=== PATIENT | female | born 1970 | race Hispanic/Latino ===

== ENCOUNTER 2020-11-01 15:11 | Inpatient (IN) | payer OTHER ==
[~2020-11-01] VITALS: Ht 162.6 cm; Wt 102.5 kg
[2020-11-01 15:19] VITALS: BP 107/66
[2020-11-01 15:52] LABS: BASOPHILS % (AUTO) 0.2 % (0.0-5.0); EOSINOPHILS % (AUTO) 1.2 % (0.0-8.0); HEMATOCRIT 40.1 % (36-48); LYMPHOCYTES % (AUTO) 11.7 % (21.0-51.0); MEAN CORPUSCULAR HEMOGLOBIN 29.9 pg (27.0-33.0); MEAN CORPUSCULAR HGB CONC 33.2 g/dL (32.0-36.0); MEAN CORPUSCULAR VOLUME 90.1 fL (79-99); NEUTROPHILS % (AUTO) 78.5 % (40.0-77.0); PLATELET COUNT (AUTO) 242 K/uL (130-400); RED BLOOD CELL COUNT(AUTO) 4.45 MIL/uL (4.00-5.50); RED CELL DISTRIBUTION WIDTH 13.6 % (11.0-15.5); WHITE BLOOD COUNT (AUTO) 9.9 K/uL (4.8-10.8)
[2020-11-01 16:04] LABS: CARBON DIOXIDE 27 mmol/L (21-32); CHLORIDE 98 mmol/L (101-111); CREATININE 0.7 mg/dL (0.5-1.5); GLOMERULAR FILTR. RATE CALC 94 mL/min (>60); GLUCOSE,RANDOM 134 mg/dL (70-105); SODIUM SERUM 137 mmol/L (136-145); UREA NITROGEN, BLOOD 5 mg/dL (7-18)
[2020-11-01 16:05] LABS: INR 1.05 (0.85-1.15); PROTHROMBIN TIME 11.4 SEC (9.6-11.6)
[2020-11-01 16:07] LABS: PARTIAL THROMBOPLASTIN TIME 27.7 SEC (26.3-35.5)
[2020-11-01 16:09] LABS: ABG BASE EXCESS 3.3 mmol/L (-2.0-3.0); ABG HCO3 25.7 mmol/L (21.0-28.0); ABG OXYGEN SATURATION 93.9 % (95.0-99.0); ABG PCO2 33 mmHg (32-45)
[2020-11-01 16:15] LABS: ALANINE AMINOTRANSFERASE 68 U/L (12-78); ALBUMIN 3.2 g/dL (3.5-5.0); ASPARTATE AMINOTRANSFERASE 44 U/L (10-37); BILIRUBIN,TOTAL 0.4 mg/dL (0.2-1.0); CREATINE KINASE, TOTAL 102 U/L (21-232); MYOGLOBIN 34 ng/mL (10-92); TOTAL PROTEIN, SERUM 8.4 g/dL (6.0-8.3); TROPONIN I < 0.04 ng/mL (0.00-0.06)
[2020-11-01 16:27] LABS: B-TYPE NATRIURETIC PEPTIDE 12 pg/mL (0-100)
[2020-11-01] MEDS ORDERED: ALBUTEROL 0.083% 2.5 MG/3 ML INH IH PRN (16:30)
[2020-11-01] MEDS ORDERED: ASPIRIN 325MG EC TAB PO ONE (16:30)
[2020-11-01] MEDS ORDERED: AZITHROMYCIN 500MG+NS 250ML IV ONE (16:30)
[2020-11-01] MEDS ORDERED: SOLU-MEDROL 125MG VIAL IM ONE (16:30)
[2020-11-01] MEDS ORDERED: 0.9% NACL 250ML IVPB ONE (16:30)
[2020-11-01] MEDS ORDERED: CEFTRIAXONE 1G VIAL IVP ONE (16:30)
[2020-11-01] MEDS ORDERED: SOLU-MEDROL 125MG VIAL IVP ONE (17:00)
[2020-11-01] MEDS ORDERED: AZITHROMYCIN 500MG+NS 250ML IV SCH (18:00)
[2020-11-01 18:53] VITALS: BP 110/62
[2020-11-01 19:03] LABS: APPEARANCE,URINE CLOUDY (CLEAR); BILIRUBIN,URINE NEGATIVE (NEGATIVE); COLOR,URINE YELLOW (YELLOW); GLUCOSE, URINE (UA) NEGATIVE (NEGATIVE); KETONES,URINE 5 mg/dL (NEGATIVE); LEUKOCYTE ESTERASE ,URINE MODERATE (NEGATIVE); NITRATE,URINE POSITIVE (NEGATIVE); OCCULT BLOOD,URINE SMALL (NEGATIVE); PROTEIN,URINE TRACE mg/dL (NEGATIVE)
[2020-11-01 19:11] LABS: BACTERIA,URINE Moderate /HPF (None Seen); SQUAMOUS EPITHELIAL CELL,UR Few /HPF (0-2)
[2020-11-01 19:23] LABS: CRP QUANTITATIVE 162.6 mg/L (0.00-9.0)
[2020-11-01] MEDS ORDERED: PHARMACY COMMUNICATION**REMDESIVIR ORDER MISC SCH (19:30)
[2020-11-01] MEDS ORDERED: COMPOUND IV REFRIGERATED 1 EACH IVSOLN MISC PRN (20:00)
[2020-11-01] MEDS ORDERED: REMDESIVIR (EUA) 520 200 MG in 0.9% NACL 250ML 250 ML IV SCH (21:00)
[2020-11-01] MEDS: ENOXAPARIN SODIUM 60 MG/0.6 ML SQ SCH (21:36)
[2020-11-01] MEDS ORDERED: ERGOCALCIFEROL (VITAMIN D2) 50,000 UNIT CAPSULE PO ONE (22:00)
[2020-11-01] MEDS ORDERED: ACETAMINOPHEN 325 MG TAB PO PRN ×2 (22:00)
[2020-11-01] MEDS ORDERED: ONDANSETRON 4MG INJ IVP PRN (22:00)
[2020-11-01] MEDS: CEFTRIAXONE 1G VIAL IVP SCH (22:00)
[2020-11-01 22:09] VITALS: BP 113/61
[2020-11-02] VITALS (8 sets, daily range): BP systolic 95–135; BP diastolic 51–81
[2020-11-02] MEDS ORDERED: ENAL10TA18 PO (03:02)
[2020-11-02 05:34] LABS: HEMATOCRIT 37.3 % (36-48); LYMPHOCYTES % (AUTO) 15.3 % (21.0-51.0); MEAN CORPUSCULAR HEMOGLOBIN 29.9 pg (27.0-33.0); MEAN CORPUSCULAR VOLUME 90.5 fL (79-99); MONOCYTES % (AUTO) 2.6 % (3.0-13.0); NEUTROPHILS % (AUTO) 81.6 % (40.0-77.0); PLATELET COUNT (AUTO) 262 K/uL (130-400); RED BLOOD CELL COUNT(AUTO) 4.12 MIL/uL (4.00-5.50); RED CELL DISTRIBUTION WIDTH 13.6 % (11.0-15.5); WHITE BLOOD COUNT (AUTO) 3.8 K/uL (4.8-10.8)
[2020-11-02 05:49] LABS: ALBUMIN 2.9 g/dL (3.5-5.0); BILIRUBIN,TOTAL 0.3 mg/dL (0.2-1.0); CREATININE 0.6 mg/dL (0.5-1.5); CRP QUANTITATIVE 164.7 mg/L (0.00-9.0); POTASSIUM 3.8 mmol/L (3.5-5.1); TOTAL PROTEIN, SERUM 7.9 g/dL (6.0-8.3)
[2020-11-02] MEDS: REMDESIVIR LABS MISC SCH (06:00)
[2020-11-02 06:06] LABS: HEMOGLOBIN A1C 7.2 % (4.0-6.0)
[2020-11-02] MEDS ORDERED: DEXAMETHASONE SOD PHOSPHATE 4 MG/ML 1ML VIAL IVP SCH (08:00)
[2020-11-02] MEDS: ENOXAPARIN SODIUM 60 MG/0.6 ML SQ SCH ×2 (08:40→20:14)
[2020-11-02] MEDS: PANTOPRAZOLE 40 MG TAB DR PO SCH (08:40)
[2020-11-02] MEDS: INSULIN HUMULIN R 100 UNIT/ML 3ML SQ SCH ×2 (16:30→20:17)
[2020-11-02] MEDS: REMDESIVIR (EUA) 520 100 MG in 0.9% NACL 250ML 250 ML IV SCH (20:13)
[2020-11-02] MEDS: DEXAMETHASONE SOD PHOSPHATE 4 MG/ML 1ML VIAL IVP SCH (20:14)
[2020-11-02] MEDS: CEFTRIAXONE 1G VIAL IVP SCH (20:14)
[2020-11-03 03:59] VITALS: BP 110/68
[2020-11-03 04:16] LABS: HEMATOCRIT 38.4 % (36-48); LYMPHOCYTES % (AUTO) 10.5 % (21.0-51.0); MEAN CORPUSCULAR HEMOGLOBIN 29.3 pg (27.0-33.0); MEAN CORPUSCULAR HGB CONC 31.5 g/dL (32.0-36.0); MONOCYTES % (AUTO) 7.2 % (3.0-13.0); NEUTROPHILS % (AUTO) 81.7 % (40.0-77.0); PLATELET COUNT (AUTO) 303 K/uL (130-400); RED BLOOD CELL COUNT(AUTO) 4.13 MIL/uL (4.00-5.50); RED CELL DISTRIBUTION WIDTH 13.6 % (11.0-15.5); WHITE BLOOD COUNT (AUTO) 7.8 K/uL (4.8-10.8)
[2020-11-03 04:33] LABS: ALBUMIN 2.9 g/dL (3.5-5.0); BILIRUBIN,TOTAL 0.2 mg/dL (0.2-1.0); CREATININE 0.7 mg/dL (0.5-1.5); CRP QUANTITATIVE 66.4 mg/L (0.00-9.0); POTASSIUM 3.9 mmol/L (3.5-5.1); TOTAL PROTEIN, SERUM 7.7 g/dL (6.0-8.3)
[2020-11-03] MEDS: REMDESIVIR LABS MISC SCH (05:51)
[2020-11-03] MEDS: INSULIN HUMULIN R 100 UNIT/ML 3ML SQ SCH ×4 (05:53→20:23)
[2020-11-03 08:16] VITALS: BP 119/72
[2020-11-03] MEDS: PANTOPRAZOLE 40 MG TAB DR PO SCH (09:10)
[2020-11-03] MEDS: DEXAMETHASONE SOD PHOSPHATE 4 MG/ML 1ML VIAL IVP SCH ×2 (09:11→20:20)
[2020-11-03] MEDS: ENOXAPARIN SODIUM 60 MG/0.6 ML SQ SCH ×2 (09:12→20:21)
[2020-11-03] MEDS: MEROPENEM 1 GM VIAL IVP SCH ×2 (10:59→17:20)
[2020-11-03 11:24] VITALS: BP 114/71
[2020-11-03 16:36] VITALS: BP 136/74
[2020-11-03 20:10] VITALS: BP 120/71
[2020-11-03] MEDS: BUSPIRONE HCL 5 MG TABLET PO SCH (20:20)
[2020-11-03] MEDS: REMDESIVIR (EUA) 520 100 MG in 0.9% NACL 250ML 250 ML IV SCH (20:21)
[2020-11-03 23:29] VITALS: BP 140/80
[2020-11-04] MEDS: MEROPENEM 1 GM VIAL IVP SCH ×3 (02:23→16:33)
[2020-11-04 04:11] VITALS: BP 125/74
[2020-11-04 04:33] LABS: BASOPHILS % (AUTO) 0.1 % (0.0-5.0); HEMATOCRIT 36.9 % (36-48); LYMPHOCYTES % (AUTO) 9.3 % (21.0-51.0); MEAN CORPUSCULAR HEMOGLOBIN 29.2 pg (27.0-33.0); MEAN CORPUSCULAR HGB CONC 31.4 g/dL (32.0-36.0); MEAN CORPUSCULAR VOLUME 92.9 fL (79-99); MONOCYTES % (AUTO) 7.5 % (3.0-13.0); NEUTROPHILS % (AUTO) 82.5 % (40.0-77.0); PLATELET COUNT (AUTO) 305 K/uL (130-400); RED BLOOD CELL COUNT(AUTO) 3.97 MIL/uL (4.00-5.50); RED CELL DISTRIBUTION WIDTH 13.5 % (11.0-15.5); WHITE BLOOD COUNT (AUTO) 7.8 K/uL (4.8-10.8)
[2020-11-04 04:47] LABS: ALBUMIN 2.8 g/dL (3.5-5.0); BILIRUBIN,TOTAL 0.2 mg/dL (0.2-1.0); CREATININE 0.7 mg/dL (0.5-1.5); CRP QUANTITATIVE 28.2 mg/L (0.00-9.0); POTASSIUM 4.3 mmol/L (3.5-5.1); TOTAL PROTEIN, SERUM 7.1 g/dL (6.0-8.3)
[2020-11-04] MEDS: REMDESIVIR LABS MISC SCH (06:00)
[2020-11-04] MEDS: INSULIN HUMULIN R 100 UNIT/ML 3ML SQ SCH ×4 (06:15→21:25)
[2020-11-04] MEDS: DEXAMETHASONE SOD PHOSPHATE 4 MG/ML 1ML VIAL IVP SCH (07:19)
[2020-11-04] MEDS: BUSPIRONE HCL 5 MG TABLET PO SCH ×2 (07:20→20:01)
[2020-11-04] MEDS: PANTOPRAZOLE 40 MG TAB DR PO SCH (07:20)
[2020-11-04] MEDS: ENOXAPARIN SODIUM 60 MG/0.6 ML SQ SCH (07:20)
[2020-11-04 07:53] VITALS: BP 94/57
[2020-11-04 11:41] VITALS: BP 133/55
[2020-11-04 15:14] VITALS: BP 149/72
[2020-11-04 19:54] VITALS: BP 121/84
[2020-11-04] MEDS: REMDESIVIR (EUA) 520 100 MG in 0.9% NACL 250ML 250 ML IV SCH (20:01)
[2020-11-04 23:20] VITALS: BP 134/77
[2020-11-05] MEDS: MEROPENEM 1 GM VIAL IVP SCH ×2 (01:11→09:27)
[2020-11-05 04:00] VITALS: BP 115/70
[2020-11-05 04:24] LABS: HEMATOCRIT 36.6 % (36-48); MEAN CORPUSCULAR HEMOGLOBIN 29.9 pg (27.0-33.0); MEAN CORPUSCULAR HGB CONC 31.7 g/dL (32.0-36.0); MEAN CORPUSCULAR VOLUME 94.3 fL (79-99); RED BLOOD CELL COUNT(AUTO) 3.88 MIL/uL (4.00-5.50); RED CELL DISTRIBUTION WIDTH 13.5 % (11.0-15.5); WHITE BLOOD COUNT (AUTO) 7.9 K/uL (4.8-10.8)
[2020-11-05 04:55] LABS: ALBUMIN 2.7 g/dL (3.5-5.0); BILIRUBIN,TOTAL 0.2 mg/dL (0.2-1.0); CREATININE 0.8 mg/dL (0.5-1.5); CRP QUANTITATIVE 14.3 mg/L (0.00-9.0); POTASSIUM 4.1 mmol/L (3.5-5.1); TOTAL PROTEIN, SERUM 6.5 g/dL (6.0-8.3)
[2020-11-05] MEDS: INSULIN HUMULIN R 100 UNIT/ML 3ML SQ SCH ×2 (05:20→11:30)
[2020-11-05] MEDS: REMDESIVIR LABS MISC SCH (05:41)
[2020-11-05 08:37] VITALS: BP 120/84
[2020-11-05] MEDS ORDERED: DEXAMETHASONE SOD PHOSPHATE 4 MG/ML 1ML VIAL IVP SCH (09:00)
[2020-11-05] MEDS ORDERED: ENOXAPARIN SODIUM 60 MG/0.6 ML SQ SCH (09:00)
[2020-11-05] MEDS: BUSPIRONE HCL 5 MG TABLET PO SCH (09:27)
[2020-11-05] MEDS: PANTOPRAZOLE 40 MG TAB DR PO SCH (09:27)
[2020-11-05] MEDS ORDERED: NITR100C4 PO (11:27)
[2020-11-05] MEDS ORDERED: DEXA6TAB PO (11:27)
[2020-11-05] MEDS ORDERED: APIX2.5T PO (11:27)
[2020-11-05 12:11] VITALS: BP 115/74
[2020-11-05 16:03] VITALS: BP 114/74
== END 2020-11-05 17:51 | disposition home or self-care (01) | DRG 177 ==
LOC: EDH 15:11 → OBSVTOIN 15:12 → EDHIP 15:12 → 2AH 11-02 02:34
PROVIDERS: ADMIT Internal Medicine; ATTEND Internal Medicine
PROC: XW033E5 Introduction of Remdesivir Anti-infective into Peripheral Vein, Percutaneous Approach, New Technology Group 5 (ICD-10-PCS; principal; 2020-11-01)
DX: U07.1 COVID-19 (principal); J12.82 Pneumonia due to coronavirus disease 2019; J80 Acute respiratory distress syndrome; D68.59 Other primary thrombophilia; Z16.12 Extended spectrum beta lactamase (ESBL) resistance; N30.00 Acute cystitis without hematuria; Z68.41 Body mass index [BMI] 40.0-44.9, adult; E66.01 Morbid (severe) obesity due to excess calories; I10 Essential (primary) hypertension; E11.9 Type 2 diabetes mellitus without complications; B96.20 Unspecified Escherichia coli [E. coli] as the cause of diseases classified elsewhere; Z79.01 Long term (current) use of anticoagulants; Z82.49 Family history of ischemic heart disease and other diseases of the circulatory system
CPT/HCPCS: 36415; 36600; 71045; 80053; 81001; 82550; 82728; 82803; 82948; 83036; 83615; 83874; 83880; 84145; 84484; 85025; 85027; 85378; 85610; 85730; 86140; 87040; 87077; 87088; 87186; 87635; 87804; 87880; 93005; 93970; 94664; 94760; C9803; G0378; J0456; J0696; J1100; J1650; J1815; J2185; J2930; J7050